=== PATIENT | female | born 1995 | race Caucasian/White ===

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

== ENCOUNTER → 2017-01-31 | Outpatient (REF) | payer MEDICAID, OTHER, SELFPAY ==
[2017-01-31 18:47] LABS: CONTROL LINE MONO INT CTR LINE PRESENT
[2017-01-31 19:04] LABS: ALBUMIN 3.5 GM/DL (3.2-5.2); ALKALINE PHOSPHATASE 56 U/L (45-117); ALT/SGPT 16 U/L (12-78); ANION GAP 8 MEQ/L (8-16); AST/SGOT 14 U/L (7-37); BILIRUBIN,TOTAL 0.4 MG/DL (0.2-1.0); BLOOD UREA NITROGEN 11 MG/DL (7-18); CARBON DIOXIDE LEVEL 26 MEQ/L (21-32); CHLORIDE LEVEL 102 MEQ/L (98-107); CREATININE FOR GFR 0.73 MG/DL (0.55-1.02); GLUCOSE, FASTING 69 MG/DL (70-105); POTASSIUM SERUM 4.5 MEQ/L (3.5-5.1); SODIUM LEVEL 136 MEQ/L (136-145); TOTAL PROTEIN 7.9 GM/DL (6.4-8.2)
[2017-01-31 19:05] LABS: BASO % 0.6 % (0.0-1.0); EOS % 0.6 % (0.0-3.0); IMMATURE GRANULOCYTE % 0.5 % (0-0); LYMPH # 1.7 10^3/uL (1.5-6.5); MEAN CORPUSCULAR HEMOGLOBIN 27.2 pg (27.0-33.0); MEAN CORPUSCULAR HGB CONC 32.5 g/dl (32.0-36.5); MEAN CORPUSCULAR VOLUME 83.8 fl (80.0-96.0); MONO # 0.5 10^3/uL (0.0-0.8); MONO % 8.3 % (0.0-5.0); PLATELET COUNT, AUTOMATED 316 10^3/uL (150-450); WHITE BLOOD COUNT 6.4 10^3/uL (4.0-10.0)
== END ==
LOC: M LAB REF 17:30
PROVIDERS: ATTEND Family Medicine
DX: R05 Cough (principal); R53.83 Other fatigue; J06.9 Acute upper respiratory infection, unspecified

== ENCOUNTER → 2018-08-29 | Outpatient (REF) | payer OTHER ==
[2018-08-30 11:49] LABS: BASO # 0.1 10^3/uL (0.0-0.2); BASO % 0.6 % (0.0-1.0); EOS % 0.4 % (0.0-3.0); HEMATOCRIT 37.7 % (36.0-47.0); HEMOGLOBIN 12.7 g/dl (12.0-15.5); MEAN CORPUSCULAR HEMOGLOBIN 30.5 pg (27.0-33.0); MEAN CORPUSCULAR HGB CONC 33.7 g/dl (32.0-36.5); MEAN CORPUSCULAR VOLUME 90.4 fl (80.0-96.0); MONO # 0.5 10^3/uL (0.0-0.8); MONO % 6.3 % (0.0-5.0); NEUTROPHILS # 5.1 10^3/uL (1.8-7.7); NEUTROPHILS % 66.4 % (36.0-66.0); PLATELET COUNT, AUTOMATED 316 10^3/uL (150-450); RED BLOOD COUNT 4.17 10^6/uL (4.00-5.40); WHITE BLOOD COUNT 7.7 10^3/uL (4.0-10.0)
[2018-08-30 12:16] LABS: HEMOGLOBIN A1c 5.1 %
[2018-08-30 12:32] LABS: ALBUMIN 3.4 GM/DL (3.2-5.2); ALT/SGPT 14 U/L (12-78); BILIRUBIN,TOTAL 0.3 MG/DL (0.2-1.0); BLOOD UREA NITROGEN 10 MG/DL (7-18); CALCIUM LEVEL 9.2 MG/DL (8.5-10.1); CARBON DIOXIDE LEVEL 23 MEQ/L (21-32); CHLORIDE LEVEL 108 MEQ/L (98-107); CREATININE FOR GFR 0.88 MG/DL (0.55-1.30); GLUCOSE, FASTING 79 MG/DL (70-100); POTASSIUM SERUM 4.4 MEQ/L (3.5-5.1); SODIUM LEVEL 141 MEQ/L (136-145); TOTAL 25(OH) VITAMIN D 21.3 NG/ML (30.0-100.0); TOTAL PROTEIN 7.4 GM/DL (6.4-8.2)
[2018-09-01 00:08] LABS: EBV AB TO NUCLEAR ANTIGEN <18.0 U/mL (0.0-17.9); EBV VIRAL CAPSID AG IgG >600.0 U/mL (0.0-17.9); EBV VIRAL CAPSID AG IgM <36.0 U/mL (0.0-35.9)
== END ==
LOC: M LAB REF 11:17
PROVIDERS: ATTEND Nurse Practitioner Family
DX: R53.83 Other fatigue (principal)

== ENCOUNTER → 2020-07-17 | Outpatient (CLI) | payer OTHER ==
--- NOTE | 2020-07-18 10:16 | ECHO ---
DATE OF PROCEDURE: 07/17/2020 Age: 24 Gender: Female Height: 62 inches Weight: 122 pounds Body surface area: 1.57 m2 PATIENT LOCATION: Outpatient. REFERRING PHYSICIAN: Rhys Ervin D.O. INDICATION: Mitral valve prolapse. MEASUREMENTS: 2D Measurements: RV 2.8 cm LV 4.1 cm Septum 0.8 cm Posterior wall 0.8 cm Aortic Root 2.8 cm LA 3.0 cm LVEF 65-70% Doppler Measurements: AV 1.2 m/s LVOT 0.9 m/s LVOT diameter 1.8 cm MV-E 102, A 57, E/A ratio 1.8 Early mitral deceleration time 145 msec E prime medial 8, A prime medial 9, E prime lateral 13.9 PV 0.9 m/s Pulmonary artery acceleration time 141 msec PASP 18 mmHg IVC 1.8 cm COMMENTS: Normal sinus rhythm without intraventricular conduction disturbance. M-mode and two-dimensional echocardiography was performed with pulse, continuous wave, color flow, and tissue Doppler studies. Normal left ventricular size, wall thickness, and hyperkinetic wall motion. Normal left atrial size and Doppler assessment of LV diastolic function and estimated mean left atrial pressure. Normal right heart chamber sizes and motion and estimated pulmonary artery pressure. Normal aortic diameters. Normal appearing and functioning aortic valve. Mild proliferation of the mitral valve apparatus with normal leaflet excursion and mild posterior systolic buckling with only trace to mild posteriorly directed mitral insufficiency. Normal appearing tricuspid valve with very mild insufficiency. No apparent intracardiac mass or pericardial effusion. MTDD
== END ==
LOC: M CARPUL 09:58
PROVIDERS: ATTEND Student in an Organized Health Care Education/Training Program
DX: I34.1 Nonrheumatic mitral (valve) prolapse (principal)

== ENCOUNTER → 2020-12-18 | Outpatient (REF) | payer OTHER | LOC: M SFHCPLAZ 09:00 | PROVIDERS: ATTEND Family Medicine | DX: Z53.9 Procedure and treatment not carried out, unspecified reason (principal); Z13.220 Encounter for screening for lipoid disorders; Z13.1 Encounter for screening for diabetes mellitus; Z11.3 Encounter for screening for infections with a predominantly sexual mode of transmission; L70.0 Acne vulgaris; Z86.2 Personal history of diseases of the blood and blood-forming organs and certain disorders involving the immune mechanism; R23.8 Other skin changes ==

== ENCOUNTER → 2021-05-28 | Outpatient (CLI) | payer OTHER ==
[2021-05-28 17:01] LABS: HEMATOCRIT 43.5 % (36.0-47.0); HEMOGLOBIN 14.3 g/dl (12.0-15.5); MEAN CORPUSCULAR HEMOGLOBIN 30.2 pg (27.0-33.0); MEAN CORPUSCULAR HGB CONC 32.9 g/dl (32.0-36.5); PLATELET COUNT, AUTOMATED 281 10^3/uL (150-450); RED BLOOD COUNT 4.73 10^6/uL (4.00-5.40); WHITE BLOOD COUNT 6.2 10^3/uL (4.0-10.0)
[2021-05-28 17:19] LABS: ALBUMIN 4.2 GM/DL (3.2-5.2); ALT/SGPT 21 U/L (12-78); BILIRUBIN,TOTAL 0.4 MG/DL (0.2-1.0); BLOOD UREA NITROGEN 16 MG/DL (7-18); CALCIUM LEVEL 9.2 MG/DL (8.5-10.1); CARBON DIOXIDE LEVEL 30 MEQ/L (21-32); CHLORIDE LEVEL 105 MEQ/L (98-107); CREATININE FOR GFR 0.76 MG/DL (0.55-1.30); FREE T4 1.28 NG/DL (0.76-1.46); GLOMERULAR FILTRATION RATE > 60.0 (>60); GLUCOSE, FASTING 83 MG/DL (70-100); POTASSIUM SERUM 4.1 MEQ/L (3.5-5.1); SODIUM LEVEL 140 MEQ/L (136-145); TOTAL PROTEIN 7.6 GM/DL (6.4-8.2)
[2021-05-28 17:53] LABS: HEPATITIS B CORE ANTIBODY IGM NEGATIVE (NEGATIVE); HIV 1&2 SCREEN CENTAUR NEGATIVE (NEGATIVE)
[2021-05-28 18:30] LABS: ERYTHROCYTE SEDIMENTATION RATE 3 mm/hr (0-20)
[2021-05-29 13:01] LABS: ALBUMIN 4.72 GM/DL (3.29-5.55); ALBUMIN % 62.1 % (55.8-66.1); ALPHA-1-GLOBULIN % 3.5 % (2.9-4.9); ALPHA-1-GLOBULINS 0.27 GM/DL (0.17-0.41); ALPHA-2-GLOBULINS 0.75 GM/DL (0.42-0.99); ALPHA-2-GLOBULINS % 9.9 % (7.1-11.8); BETA-1-GLOBULINS 0.48 GM/DL (0.28-0.60); BETA-1-GLOBULINS % 6.3 % (4.7-7.2); BETA-2-GLOBULINS 0.33 GM/DL (0.19-0.55); BETA-2-GLOBULINS % 4.4 % (3.2-6.5); GAMMA GLOBULIN % 13.8 % (11.1-18.8); GAMMA GLOBULINS 1.05 GM/DL (0.65-1.58)
== END ==
LOC: M PLALAB 13:12
PROVIDERS: ATTEND Family Medicine
DX: R63.4 Abnormal weight loss (principal)